=== PATIENT | female | born 1970 | race Caucasian/White ===

== ENCOUNTER → 2017-01-21 | Outpatient (CLI) | payer BC ==
[~2017-01-21] MED LIST: ALBU4TAB6 PO; ALBU8.5H4 IH; AML5T PO; ASCO500T20 PO; AZIT250T81 PO; CETI10CA PO; CHLO25TA2 PO; LSNP20T PO; METH1TAB21 PO; NIAC100T3 PO; OMEP20CA6 PO; ONDAN4ODT PO; PANT40TA3 PO; POTA10TA36 PO; [UNRECOGNIZED DRUG - OTHER]; [UNRECOGNIZED DRUG - OTHER]
--- NOTE | 2017-01-22 17:33 | Diagnostic Imaging Report ---
EXAM: DIG ELIDA BILAT SCREEN W CAD The current study was also evaluated with a Computer Aided Detection (CAD) system. INDICATION: Screening. COMPARISON: Mammograms 01/05/2014, 01/24/2015. DENSITY: Scattered areas of fibroglandular density. FINDINGS: New microcalcifications in the outer left breast, middle depth, seen on the CC view. These are not seen in the left MLO view and are likely obscured by dense tissue in the upper left breast. No calcification, mass, or architectural distortion suspicious for malignancy in the right breast. IMPRESSION: 1. New microcalcifications in the left breast. 2. No suspicious mammographic findings in the right breast. RECOMMENDATION: Additional mammographic imaging of the left breast. ACR BI-RADS Category 0: Incomplete. (Needs additional imaging evaluation). Result letter will be mailed to the patient. Note: At least 10% of breast cancer is not imaged by mammography. Dictated by: Dictated on workstation # [id number]
== END ==
LOC: RAD 10:36
PROVIDERS: ATTEND Family Medicine
DX: Z12.31 Encounter for screening mammogram for malignant neoplasm of breast (principal); R92.0 Mammographic microcalcification found on diagnostic imaging of breast

== ENCOUNTER → 2017-01-29 | Outpatient (CLI) | payer BC ==
--- NOTE | 2017-01-29 13:00 | Diagnostic Imaging Report ---
PROCEDURE: US Breast limited, left. INDICATION: Left breast nodule. TECHNIQUE: Multiple real time jurado-scale images were obtained of the inferior one-half of the left breast. FINDINGS: Several small cysts were identified, the largest at 11:00 o'clock 4 cm from the nipple. No solid mass or other lesion was identified. IMPRESSION: 1. Small simple left breast cysts. Otherwise, unremarkable targeted breast ultrasound. Dictated by: Dictated on workstation # [id number]
--- NOTE | 2017-01-29 16:21 | Diagnostic Imaging Report ---
INDICATION: Recall from screening. EXAM: Multiple additional mammographic views of the left breast are performed. COMPARISONS: 01/21/2017, 01/24/2015, 01/05/2014. FINDINGS: The left breast is heterogeneously moderately dense. We do identify an area of microcalcification located left breast slightly lateral, 1:00 o'clock position mid depth. These calcifications occupy an area of approximately 5 mm. They are amorphous and of variable size. They are not pleomorphic or milk of calcium. They have developed since 2014. On one of the spot views we identified a small nodule with well-circumscribed margins and obscured margins in the inferior aspect of the breast measuring 7 mm. Targeted ultrasound showed cyst formation with no solid masses inferiorly. An additional circumscribed nodule was seen lateral to the calcifications on the CC view which is probably a cyst seen sonographically. IMPRESSION: Indeterminate very small cluster of calcifications in the left breast. Stereotactic biopsy could be attempted to establish histology. These are of low suspicion. ACR BI-RADS Category 4: Suspicious abnormality. Result letter will be mailed to the patient. Note: At least 10% of breast cancer is not imaged by mammography. Report given to nurse (Neva) at 4:20 p.m. 01/29/2017/cb Dictated by: Dictated on workstation # [id number]
== END ==
LOC: RAD 10:46
PROVIDERS: ATTEND Family Medicine
DX: R92.0 Mammographic microcalcification found on diagnostic imaging of breast (principal); N60.02 Solitary cyst of left breast
CPT/HCPCS: 76642; G0206